=== PATIENT | male | born 2000 | race Caucasian/White ===

== ENCOUNTER 2025-04-15 00:10 | Emergency (ER) | payer OTHER, MEDICAID ==
[~2025-04-15] VITALS: Ht 175.3 cm; Wt 90.0 kg
[2025-04-15 00:13] VITALS: TEMP 98.5; O2SAT 98
[2025-04-15] MEDS ORDERED: BO1 TP (00:58)
[2025-04-15] MEDS ORDERED: IBUP-1455 MT (00:58)
[2025-04-15] MEDS: BACITRACIN ZINC OINT UDPKT TOP ONE (01:12)
[2025-04-15] MEDS: TETANUS, DIPHTHERIA, PERTUSSIS VAC/PF 0.5ML (>10YR OLD) IM ONE (01:13)
[2025-04-15] MEDS: IBUPROFEN 600MG TABLET PO ONE (01:13)
[2025-04-15 01:31] VITALS: BP 148/88; PULSE 91; RESP 18; O2SAT 98
== END 2025-04-15 01:43 | disposition home or self-care (01) ==
LOC: ER 00:10
DX: S80.211A Abrasion, right knee, initial encounter (principal); S90.411A Abrasion, right great toe, initial encounter; V89.2XXA Person injured in unspecified motor-vehicle accident, traffic, initial encounter; Y93.89 Activity, other specified; Y92.89 Other specified places as the place of occurrence of the external cause; Y99.8 Other external cause status
CPT/HCPCS: 90471; 90715; 99283